=== PATIENT | male | born 1980 | race Caucasian/White ===

== ENCOUNTER 2017-10-10 16:46 | Emergency (ER) | payer BC, OTHER ==
[2017-10-10] MEDS ORDERED: METHYLPRED NA SUC 1,000 MG in NA CHLORIDE 0.9% 100 ML IV ONE (18:00)
--- NOTE | 2017-10-10 18:29 | RAD REPORT ---
EXAM DESCRIPTION: MRI - Brain W/Wo Cont - 10/10/2017 6:02 pm CLINICAL HISTORY: Vision loss left eye COMPARISON: Head CT October 10, 2017 TECHNIQUE: Axial, sagittal, and coronal magnetic images of the brain were obtained. 16 cc MultiHance administered intravenously FINDINGS: A large number of areas of abnormal signal are perpendicular to the lateral ventricles wit hin periventricular and deep white matter bilaterally. They have an ovoid appearance. They vary in si ze from a few millimeters to several centimeters. Subcortical white matter is also involved. Peripheral enhancement of a 9 millimeter lesion within the left parietal lobe is present. Curvilinear enhancement within the left frontal lobe is seen. Diffusion-weighted/ADC mapping does not reveal evidence of acute infarction. The ventricles are normal caliber. An extradural fluid collection is not seen The sinuses and mastoids are clear. IMPRESSION: Large number ovoid areas of abnormal signal within predominantly periventricular and christopher p white matter bilaterally. Subcortical white matter is also involved. Most likely these represent de myelinating plaques related to multiple sclerosis. Enhancement involves lesions within the left fron rommel and left parietal lobe indicating active disease
--- NOTE | 2017-10-10 18:30 | RAD REPORT ---
EXAM DESCRIPTION: CT - Head Brain Wo Cont - 10/10/2017 6:11 pm CLINICAL HISTORY: Vision loss to left eye COMPARISON: None. TECHNIQUE: Computed axial tomography of the head was obtained. IV contrast was not requested. All CT scans are performed using dose optimization technique as appropriate and may include automated exposure control or mA/KV adjustment according to patient size. FINDINGS: An intracranial bleed is not seen . The ventricles are normal in caliber. No extra-axial fluid collection is noted. Low-density areas are present within periventricular, deep and subcortical white matter bilaterally. Fluid within the sinuses/ mastoids is not seen. IMPRESSION: Low-density areas within periventricular, deep and subcortical white matter bilaterally suspicious for demyelinating plaques related to multiple sclerosis
[2017-10-10 18:56] LABS: Absolute Lymphocytes (CBC) 1.6 K/uL (0.7-4.9); Absolute Monocytes 0.4 K/uL (0.1-1.3); Absolute Neutrophil 5.3 K/uL (1.8-8.0); Basophils % 1.7 % (0-1.3); Hematocrit 44.5 % (39.6-49.0); Lymphocytes % 21.1 % (15.3-44.8); MCH 25.8 pg (27.0-35.0); MPV 8.6 fL (7.6-11.3); Monocytes % 5.1 % (3.3-12.3); RBC Red Blood Cell Count 5.64 M/uL (4.33-5.43)
[2017-10-10 18:59] LABS: Protime INR 1.09
[2017-10-10 19:06] LABS: Potassium 3.6 mEq/L (3.6-5.0)
[2017-10-10] MEDS ORDERED: FOLIC ACID 5 MG/ML VIAL ONE (19:12)
[2017-10-10] MEDS ORDERED: NA CHLORIDE 0.9% 1,000 ML ONE (19:12)
[2017-10-10 19:13] LABS: Albumin 5.1 g/dL (3.2-5.5); Bilirubin Direct 0.1 mg/dL (0-0.2); Bilirubin Total 0.9 mg/dL (0.3-1.2); Magnesium 1.9 mg/dL (1.8-2.5); Protein, Total 7.7 g/dL (6.0-8.3)
[2017-10-10 19:43] LABS: CKMB Creatine Kinase MB 0.8 ng/ml (0.3-4.0)
--- NOTE | 2017-10-10 19:51 | RAD REPORT ---
EXAM DESCRIPTION: Joe Single View10/10/2017 6:16 pm CLINICAL HISTORY: cough COMPARISON: none FINDINGS: The lungs appear clear of acute infiltrate. The heart is normal size IMPRESSION: No acute abnormalities displayed
--- NOTE | 2017-10-10 20:11 | EDPHYS ---
Physician Documentation [facility] Name: Todd Hendrix Age: 37 yrs Sex: Male : 1980 Arrival Date: 10/10/2017 Time: 16:50 Bed 8 Private MD: Bryon Peoples H ED Physician Phillip Schmitz HPI: 10/10 19:50 This 37 yrs old Male presents to ER via Ambulatory with complaints of Vision tw4 Problem. 19:50 The patient is experiencing decreased vision, The patient sustained None. Onset: The tw4 symptoms/episode began/occurred last week. Duration: the symptoms are continuous. Aggravated by nothing. Alleviated by nothing. Associated signs and symptoms: Pertinent positives: None. Pertinent negatives: None. Patient has had LASIK surgery. Severity of symptoms: At their worst the symptoms were moderate in the emergency department the symptoms are unchanged. The patient has not experienced similar symptoms in the past. The patient has been recently seen by a physician: an opthalmologist, earlier today. Historical: - Allergies: 16:57 No Known Allergies; aj - Home Meds: 16:57 quinapril 20 mg Oral tab 1 tab once daily [Active]; aj - PMHx: 16:57 Hypertension; aj - PSHx: 16:57 None; aj - Immunization history:: Adult Immunizations up to date. - Social history:: Smoking status: Patient/guardian denies using tobacco. ROS: 19:50 Constitutional: Negative for fever, chills, and weight loss, Cardiovascular: Negative tw4 for chest pain, palpitations, and edema, Respiratory: Negative for shortness of breath, cough, wheezing, and pleuritic chest pain, Abdomen/GI: Negative for abdominal pain, nausea, vomiting, diarrhea, and constipation, Back: Negative for injury and pain, MS/Extremity: Negative for injury and deformity, Skin: Negative for injury, rash, and discoloration, Neuro: Negative for headache, weakness, numbness, tingling, and seizure. 19:50 Eyes: Positive for vision loss, visual disturbance, Negative for discharge, foreign body sensation, injury or acute deformity, itching, matting, redness. Exam: 19:50 Head/Face: Normocephalic, atraumatic. ENT: Nares patent. No nasal discharge, no tw4 septal abnormalities noted. Tympanic membranes are normal and external auditory canals are clear. Oropharynx with no redness, swelling, or masses, exudates, or evidence of obstruction, uvula midline. Mucous membranes moist. Chest/axilla: Normal chest wall appearance and motion. Nontender with no deformity. No lesions are appreciated. Cardiovascular: Regular rate and rhythm with a normal S1 and S2. No gallops, murmurs, or rubs. Normal PMI, no JVD. No pulse deficits. Respiratory: Lungs have equal breath sounds bilaterally, clear to auscultation and percussion. No rales, rhonchi or wheezes noted. No increased work of breathing, no retractions or nasal flaring. Abdomen/GI: Soft, non-tender, with normal bowel sounds. No distension or tympany. No guarding or rebound. No evidence of tenderness throughout. Skin: Warm, dry with normal turgor. Normal color with no rashes, no lesions, and no evidence of cellulitis. MS/ Extremity: Pulses equal, no cyanosis. Neurovascular intact. Full, normal range of motion. Neuro: Awake and alert, GCS 15, oriented to person, place, time, and situation. Cranial nerves II-XII grossly intact. Motor strength 5/5 in all extremities. Sensory grossly intact. Cerebellar exam normal. Normal gait. Vital Signs: 16:57 BP 142 / 88; Pulse 118; Resp 20; Temp 98.6; Pulse Ox 98% on R/A; Weight 74.84 kg; aj Height 5 ft. 10 in. (177.80 cm); Pain 0/10; 18:15 BP 134 / 76; Pulse 68; Resp 16; Pulse Ox 100% ; Pain 0/10; jl7 19:30 BP 145 / 80; Pulse 72; Resp 14; Pulse Ox 100% ; bp 20:28 BP 138 / 84; Pulse 68; Resp 16; Pulse Ox 98% ; bp 16:57 Body Mass Index 23.67 (74.84 kg, 177.80 cm) aj MDM: 17:14 Patient medically screened. tomer 21:43 Differential diagnosis: optic neuritis, transient visual loss. Data reviewed: vital tw4 signs, nurses notes, old medical records, sent by Dr Cevallos to r/o optic neuritis. Data interpreted: Pulse oximetry: Interpretation: normal. Counseling: I had a detailed discussion with the patient and/or guardian regarding: the historical points, exam findings, and any diagnostic results supporting the discharge/admit diagnosis, the presence of at least one elevated blood pressure reading (>120/80) during this emergency department visit, lab results, the need to transfer to another facility, for higher level of care, [facility] does not immediately have the required specialist. Other consultation: D/W Dr Cano \T\1999 Neurology at [facility] accepts patient for admission. Awaiting: transfer to another facility. ED course: pt received IV methylprednisolone 1g. 10/10 17:18 Order name: Basic Metabolic Panel; Complete Time: 20: [facility] 10/10 17:18 Order name: BNP; Complete Time: 19:25 [facility] 10/10 17:18 Order name: CBC with Diff; Complete Time: : [facility] 10/10 17:18 Order name: Ckmb; Complete Time: : [facility] 10/10 17:18 Order name: CPK; Complete Time: : [facility] 10/10 17:18 Order name: LFT's; Complete Time: : [facility] 10/10 17:18 Order name: Magnesium; Complete Time: : [facility] 10/10 17:18 Order name: PT-INR; Complete Time: :25 [facility] 10/10 17:18 Order name: Ptt, Activated; Complete Time: : [facility] 10/10 17:18 Order name: Troponin (emerg Dept Use Only); Complete Time: 19:25 [facility] 10/10 17:18 Order name: XRAY Chest (1 view); Complete Time: 20: [facility] 10/10 17:18 Order name: CT Head Brain wo Cont; Complete Time: 19:25 [facility] 10/10 17:18 Order name: Urine Culture [facility] 10/10 20:11 Order name: Urine Dipstick--Ancillary (enter results) rg2 10/10 17:18 Order name: Cardiac monitoring; Complete Time: 18:44 [facility] 10/10 17:18 Order name: EKG - Nurse/Tech; Complete Time: 18:44 [facility] 10/10 17:18 Order name: IV Saline Lock; Complete Time: 18:44 [facility] 10/10 17:18 Order name: Labs collected and sent; Complete Time: 18:44 [facility] 10/10 17:18 Order name: O2 Per Protocol; Complete Time: 18:44 [facility] 10/10 17:18 Order name: O2 Sat Monitoring; Complete Time: 18:44 [facility] 10/10 17:18 Order name: Urine Dipstick-Ancillary (obtain specimen); Complete Time: 18:44 [facility] 10/10 17:18 Order name: MRI - Brain W/Wo Cont: MS protocol; Complete Time: 19:25 [facility] Administered Medications: 17:10 Drug: NS 0.9% 1000 ml Route: IV; Rate: 1 bolus; Site: left antecubital; jl7 21:54 Follow up: IV Status: Completed infusion; IV Intake: 1000ml bp 17:11 Drug: foLIC Acid 1 mg Route: IVPB; Site: left antecubital; jl7 21:54 Follow up: IV Status: Completed infusion bp 17:15 Drug: SOLU-Medrol 1000 mg Route: IVP; Site: left antecubital; jl7 20:05 Follow up: Response: No adverse reaction bp Disposition: 10/10/17 20:11 Transfer ordered to [facility]. Diagnosis are Multiple sclerosis, Visual disturbances. - Reason for transfer: Higher level of care. - Accepting physician is Dr Grace. - Condition is Stable. - Problem is new. - Symptoms are unchanged. Signatures: Dispatcher [employer] EDSharifa Alford RN RN aj Anderson, Corey, MD MD cha Leal, Jahala RN RN jl7 Zechariah Garcia RN RN bp Wadley, Terrence, MD MD tw4 Corrections: (The following items were deleted from the chart) 22:24 20:11 10/10/2017 20:11 Transfer ordered to [facility]. Diagnosis is bp Multiple sclerosis; Visual disturbances. Reason for transfer: Higher level of care. Accepting physician is Dr Grace. Condition is Stable. Problem is new. Symptoms are unchanged. tw4
--- NOTE | 2017-10-10 20:11 | ER ---
Nurse's Notes [facility] Name: Todd Hendrix Age: 37 yrs Sex: Male : 1980 Arrival Date: 10/10/2017 Time: 16:50 Bed 8 Private MD: Bryon Peoples H Diagnosis: Multiple sclerosis;Visual disturbances Presentation: 10/10 16:55 Presenting complaint: Patient states: Loss of vision to left eye since Friday. Patient aj sent by Dr Cevallos with orders for MS work up and start IV steroids. Transition of care: patient was not received from another setting of care. Onset of symptoms was October 06, 2017. Care prior to arrival: None. 16:55 Method Of Arrival: Ambulatory aj 16:55 Acuity: ALIYAH 2 aj 18:43 Initial Sepsis Screen: Does the patient meet any 2 criteria? No. Patient's initial jl7 sepsis screen is negative. Does the patient have a suspected source of infection? No. Patient's initial sepsis screen is negative. Triage Assessment: 16:57 General: Appears in no apparent distress. comfortable, Behavior is cooperative, aj anxious. Pain: Denies pain. EENT: Reports loss of vision to left eye since Friday. Neuro: Level of Consciousness is awake, alert, obeys commands, Oriented to person, place, time, situation, Appropriate for age. Respiratory: Airway is patent Respiratory effort is even, unlabored, Respiratory pattern is regular, symmetrical. Derm: Skin is intact, is healthy with good turgor, Skin is pink, warm \T\ dry. normal. Historical: - Allergies: 16:57 No Known Allergies; aj - Home Meds: 16:57 quinapril 20 mg Oral tab 1 tab once daily [Active]; aj - PMHx: 16:57 Hypertension; aj - PSHx: 16:57 None; aj - Immunization history:: Adult Immunizations up to date. - Social history:: Smoking status: Patient/guardian denies using tobacco. Screenin:15 Abuse screen: Denies threats or abuse. Denies injuries from another. Nutritional jl7 screening: No deficits noted. Tuberculosis screening: No symptoms or risk factors identified. Fall Risk IV access (20 points). Total Up Fall Scale indicates No Risk (0-24 pts). Assessment: 17:20 Reassessment: Pt at radiology. jl7 18:15 General: Appears in no apparent distress. uncomfortable, Behavior is cooperative, jl7 appropriate for age, anxious. Pain: Denies pain. Neuro: Level of Consciousness is awake, alert, obeys commands, Oriented to person, place, time, situation, Bunch Maker are equal bilaterally Moves all extremities. Gait is steady, Speech is normal, Facial symmetry appears normal, Pupils are PERRLA, dilated, Reports decreased vision in left eye. Cardiovascular: Patient's skin is warm and dry. Respiratory: Airway is patent Respiratory effort is even, unlabored, Respiratory pattern is regular, symmetrical. GI: No signs and/or symptoms were reported involving the gastrointestinal system. : No signs and/or symptoms were reported regarding the genitourinary system. EENT: No signs and/or symptoms were reported regarding the EENT system. Derm: Skin is pink, warm \T\ dry. Musculoskeletal: No signs and/or symptoms reported regarding the musculoskeletal system. 19:00 Reassessment: RECD REPORT FROM FERNIE MANSFIELD. 37YO WM SENT FROM [facility] FOR MS WORKUP AND IV bp STEROIDS 2/2 LEFT SIDED VISUAL LOSS. MEDS PENDING FROM PHARMACY. 20:00 Reassessment: MRI RESULTED, GROSSLY ABNORMAL. PT DISPO PENDING C/S WITH NEURO. bp 22:00 Reassessment: EMS AT B/S FOR TRANSPORT. bp Vital Signs: 16:57 BP 142 / 88; Pulse 118; Resp 20; Temp 98.6; Pulse Ox 98% on R/A; Weight 74.84 kg; aj Height 5 ft. 10 in. (177.80 cm); Pain 0/10; 18:15 BP 134 / 76; Pulse 68; Resp 16; Pulse Ox 100% ; Pain 0/10; jl7 19:30 BP 145 / 80; Pulse 72; Resp 14; Pulse Ox 100% ; bp 20:28 BP 138 / 84; Pulse 68; Resp 16; Pulse Ox 98% ; bp 16:57 Body Mass Index 23.67 (74.84 kg, 177.80 cm) aj ED Course: 16:50 Patient arrived in ED. mr 16:50 Bryon Peoples DO is Private Physician. mr 16:56 Triage completed. aj 16:57 Arm band placed on left wrist. Patient placed in waiting room. aj 17:01 Fernie Cohen RN is Primary Nurse. jl7 17:14 Zhou Ghotra MD is Attending Physician. tomer 17:35 Patient moved to MRI via wheelchair. em2 17:55 MRI completed. Patient tolerated well. Patient moved to CT via wheelchair. ka 17:57 MRI - Brain W/Wo Cont: MS protocol In Process Unspecified. EDMS 18:12 CT Head Brain wo Cont In Process Unspecified. EDMS 18:14 XRAY Chest (1 view) In Process Unspecified. EDMS 18:15 X-ray completed. Patient tolerated procedure well. ag1 18:15 Patient has correct armband on for positive identification. Bed in low position. Call jl7 light in reach. Side rails up X 1. Pulse ox on. NIBP on. 18:15 Initial lab(s) drawn, by me, sent to lab. Inserted saline lock: 24 gauge in left jl7 antecubital area, using aseptic technique. ,using aseptic technique. inserted by radiology. 18:34 Attending Physician role handed off by Zhou Ghotra MD tw4 18:34 Phillip Schmitz MD is Attending Physician. tw4 19:24 Primary Nurse role handed off by Fernie Cohen RN rg2 19:30 Report given to SHYLA Apple. jl7 19:58 Zechariah Garcia RN is Primary Nurse. bp 21:53 Report given to СВЕТЛАНА MANSFIELD, [facility] [id number]. bp 22:20 No provider procedures requiring assistance completed. Patient transferred, IV remains bp in place. Administered Medications: 17:10 Drug: NS 0.9% 1000 ml Route: IV; Rate: 1 bolus; Site: left antecubital; jl7 21:54 Follow up: IV Status: Completed infusion; IV Intake: 1000ml bp 17:11 Drug: foLIC Acid 1 mg Route: IVPB; Site: left antecubital; jl7 21:54 Follow up: IV Status: Completed infusion bp 17:15 Drug: SOLU-Medrol 1000 mg Route: IVP; Site: left antecubital; jl7 20:05 Follow up: Response: No adverse reaction bp Intake: 21:54 IV: 1000ml; Total: 1000ml. bp Outcome: 20:11 ER care complete, transfer ordered by . tw4 22:21 Transferred by ground EMS by private ambulance to [facility], bp Transfer form completed. X-rays sent w/ patient. 22:21 Condition: stable 22:21 Instructed on the need for transfer. 22:24 Patient left the ED. bp Signatures: Dispatcher [employer] EDMS Elio Yeh rg2 Sharifa Gomez, RN Zhou Trejo MD MD cha Rivera, Maria mr Brandon, Zia em2 Jessica Diana ag1 Alejandra June Jahala, RN RN jl7 Zechariah Garcia RN RN bp Phillip Schmitz MD MD tw4
[2017-10-10 20:14] LABS: Urine Blood NEGATIVE (NEG); Urine Glucose NEGATIVE (NEG); Urine Protein NEGATIVE (NEG)
[2017-10-10 22:29] VITALS: TEMP 98.6
[2017-10-10 22:32] VITALS: BP 138/84; O2SAT 98
== END 2017-10-10 22:24 | disposition short-term general hospital (02) ==
LOC: ER 16:46
DX: G35 Multiple sclerosis (principal); I10 Essential (primary) hypertension
CPT/HCPCS: 36415; 70450; 70553; 71045; 80048; 80076; 81003; 82550; 82553; 83735; 83880; 84484; 85025; 85610; 85730; 87086; 87088; 96361; 96365; 96366; 96375; 99285; A9577; J2930; J7030